=== PATIENT | female | born 1985 | race Caucasian/White ===

== ENCOUNTER 2017-06-14 09:02 | Inpatient (IN) | payer MEDICAID ==
[2017-06-14] MEDS ORDERED: LORazepam INJ* 2 MG/ML 1 ML VIAL IV PUSH ONE (09:36)
[2017-06-14] MEDS ORDERED: NS 0.9% 1000 ML* 1,000 ML IV ONE ×2 (09:36→10:51)
[2017-06-14] MEDS ORDERED: Metoclopramide IV* 5 MG/ML 2 ML VIAL IV SLOW PU ONE (09:36)
[2017-06-14] MEDS ORDERED: Meclizine TAB* 12.5 MG PO ONE (09:37)
[2017-06-14 09:38] LABS: Hematocrit 41 % (35-47); Hemoglobin 13.9 g/dl (12.0-16.0); Mean Corpuscular HGB Conc 34 g/dl (31-36); Mean Corpuscular Hemoglobin 29 pg (27-31); Mean Corpuscular Volume 87 fL (80-97); Mean Platelet Volume 8 um3 (7.4-10.4); Red Blood Count 4.78 10^6/ul (4.0-5.4); Red Cell Distribution Width 12 % (10.5-15); White Blood Count 10.3 10^3/ul (3.5-10.8)
[2017-06-14 09:57] LABS: ALT 10 U/L (7-52); AST 12 U/L (13-39); Albumin 4.1 g/dL (3.2-5.2); Alkaline Phosphatase 37 U/L (34-104); Anion Gap 12 mmol/L (2-11); BUN/Creatinine Ratio 14.3 (8-20); Blood Urea Nitrogen 12 mg/dL (6-24); CO2 Carbon Dioxide 18 mmol/L (22-32); Calcium 9.2 mg/dL (8.6-10.3); Chloride 103 mmol/L (101-111); EGFR African American 99.8 (>60); EGFR Non-African American 77.6 (>60); Globulin 3.1 g/dL (2-4); Glucose 204 mg/dL (70-100); Lipase 10 U/L (11.0-82.0); Potassium 3.8 mmol/L (3.5-5.0); Sodium 133 mmol/L (133-145); Total Protein 7.2 g/dL (6.4-8.9)
[2017-06-14 10:06] LABS: C Reactive Protein < 1.00 mg/L (< 5.00)
[2017-06-14] MEDS ORDERED: Vancomycin(*) 1,500 MG in NS 0.9% 250 ML* 250 ML IVPB ONE (10:46)
[2017-06-14 10:49] LABS: Erythrocyte Sed Rate 11 mm/Hr (0-14)
[2017-06-14] MEDS ORDERED: cefTRIAXone(*) 2 GM ADDV.VIAL IVPB ONE (11:11)
[2017-06-14] MEDS ORDERED: NS 0.9% 250 ML* 250 ML ONE (11:11)
[2017-06-14 11:13] LABS: Venous Bicarbonate HCO3 21.7 mmol/L (24-28)
--- NOTE | 2017-06-14 11:25 | RAD ---
Indication: Severe headache. Photophobia. Comparison: No relevant prior exams available on the [facility] PACS for comparison. Technique: Noncontrast CT vertex of skull through foramen magnum. Report: The sulci, ventricles, and basal cisterns are normal for age. Juarez matter white matter differentiation is preserved without evidence for edema. No intra or extra axial hemorrhage, mass, or fluid collection detected. Unremarkable visualized orbital contents. Unremarkable calvarium and skull base. Unremarkable scalp. The visualized paranasal sinuses and mastoid air spaces are clear. IMPRESSION: Negative unenhanced head CT.
[2017-06-14 11:45] LABS: Urine Bacteria Absent (Absent); Urine Bilirubin Negative (Negative); Urine Glucose 1+(50 mg/dL) (Negative); Urine Nitrite Negative (Negative)
--- NOTE | 2017-06-14 11:53 | RAD ---
HISTORY: Fever COMPARISONS: None VIEWS: 1: frontal portable view of the chest at 11:30 AM FINDINGS: LINES AND TUBES: None. CARDIOMEDIASTINAL SILHOUETTE: The cardiomediastinal silhouette is normal for portable technique. PLEURA: The costophrenic angles are sharp. No pleural abnormalities are noted. LUNG PARENCHYMA: The lungs are clear. ABDOMEN: The upper abdomen is clear. There is no subphrenic gas. BONES AND SOFT TISSUES: No bone or soft tissue abnormalities are noted. IMPRESSION: NO ACTIVE CARDIOPULMONARY DISEASE.
[2017-06-14 12:48] LABS: CSF Glucose 65 mg/dL (40-70)
[2017-06-14 13:14] LABS: Body Fluid Appearance Clear
[2017-06-14 13:15] LABS: WBC counts within 15%? Yes
[2017-06-14 13:19] LABS: BF WBC Count #1 172; BF WBC Count #2 167
[2017-06-14 13:22] LABS: BF RBC Count #1 0; BF RBC Count #2 0; Body Fluid WBC 188 /mcL; RBC counts within 6%? Yes
[2017-06-14 13:25] LABS: Body Fluid Total Cells Counted 100
[2017-06-14] MEDS ORDERED: Metoclopramide IV* 5 MG/ML 2 ML VIAL IV PRN (14:31)
[2017-06-14] MEDS ORDERED: LORazepam INJ* 2 MG/ML 1 ML VIAL IV PUSH PRN (14:31)
[2017-06-14] MEDS: Acetaminophen TAB* 325 MG PO PRN ×2 (15:20→21:15)
[2017-06-14] MEDS: NS 0.9% 1000 ML* 1,000 ML IV SCH ×2 (15:21→23:28)
[2017-06-14] MEDS: Ondansetron INJ* 2 MG/ML VIAL IV PRN (15:23)
[2017-06-14] MEDS: Ibuprofen TAB* 600 MG PO PRN (17:46)
[2017-06-14] MEDS: Meclizine TAB* 12.5 MG PO SCH (21:14)
--- NOTE | 2017-06-15 00:27 | HP ---
AMENDED REPORT NOW INCLUDES COSIGNER DESIGNATION - ESIGNED BEFORE ADJUSTMENT ATTENDING ADDENDUM NOW INCLUDED ON THIS REPORT HISTORY AND PHYSICAL: DATE OF ADMISSION: 06/14/17 PRIMARY CARE PROVIDER: The patient does not have a primary care provider. MY ATTENDING WHILE IN THE HOSPITAL: Dr. Araseli Jain * (DICTATED BY HOLLAND CEE) CHIEF COMPLAINT: Worst headache of her life since Saturday. HISTORY OF PRESENT ILLNESS: Ms. Dunaway is a 32-year-old female with no significant past medical history presents with 2 days of the worst headache of her life accompanied by dizziness, vertigo, poor appetite, nausea, vomiting, and shortness of breath. The patient states that all these symptoms are worse with movement and that she has never had anything like this before. The patient states she has not been able to eat or drink very much in the past couple of days due to vomiting, even vomiting up water. The patient states that she cannot tell if the pain in her neck caused her head to hurt so bad and every time she moves, feels like it pulses in the front of her head. The patient denies throbbing, vision changes, or unilaterality of her headache. The patient states that lights hurt her eyes. The patient denies hallucinations , aphasia, abnormal movements, numbness or tingling in her hands or feet. The patient states she has felt like she has had the fever since Saturday and has had shaking chills to accompany them. The patient states she had a cold last week and has had postnasal drip leading to the cough accompanying it. The patient states she occasionally coughs up clear or green mucus. The patient denies any blood in the mucus. The patient states she commutes from [facility] to [place]. 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 Has significant contact with children and has recently gone swimming with children and felt strange afterwards. That was a couple weeks ago. The patient denies diarrhea or bloody stools. PAST MEDICAL HISTORY: None. MEDICATIONS: None. ALLERGIES: No known drug allergies. FAMILY HISTORY: The patient's father is alive and well and has diabetes. The patient denies a family history of immunocompromised state, cardiovascular disease, cancer, respiratory disease. SOCIAL HISTORY: The patient does not smoke. The patient drinks socially. The patient denies any illicit drugs. The patient is not and does not have any kids. REVIEW OF SYSTEMS: The patient denies chest pain, hemoptysis, dysuria, hematuria, weakness, arthralgias. The patient states she does have myalgias. The patient denies any rash, but says she has not checked. The patient denies any change in personality. The patient's father corroborates this. PHYSICAL EXAMINATION GENERAL: The patient is a 32-year-old female, who appears stated age, lying on the stretcher in the emergency department under copious number of blankets without making eye contact or moving much at all. VITAL SIGNS: Blood pressure 98/56, heart rate 103, temperature 97.1 rectally when she arrived, respiratory rate 22, oxygen saturation 99% on room air. HEENT: Head: Atraumatic. Sclerae anicteric. Pupils equal, round, reactive to light. Pharynx: Nonerythematous. No ulcers. Mucous membranes are pale and dry. No rash noted on the face. NECK: Rigid. There is tender anterior lymphadenopathy present on both sides. RESPIRATORY: Good air exchange bilaterally. No wheezes, rales, or rhonchi. CARDIAC: Pulse rate tachycardic. No murmurs, clicks, gallops, or rubs. Radial , dorsalis pedis, and posterior tibial pulses +2 bilaterally. No edema. ABDOMEN: Bowel sounds present in all 4 quadrants. Abdomen scaphoid, nontender to the light and deep palpation. No hepatosplenomegaly. No abdominal bruits heard. NEURO: Cranial nerves II through XII intact. Alert and oriented x3. Brudzinski's sign positive, Kernig's sign negative. SKIN: No rashes noted. Skin is warm to touch, pink, and intact. DIAGNOSTIC STUDIES/LAB DATA: White blood cell count 10.3, hemoglobin 13.9, hematocrit 41, platelets 379. Venous blood gas pH 7.31, venous blood gas CO2 74 , venous blood gas PO2 30, venous blood gas bicarbonate 21.7, venous blood gas O2 saturation 58, venous blood gas base excess negative 2.8. Sodium 133, potassium 3.8, chloride 103, carbon dioxide 18, anion gap 12, BUN 12, creatinine 0.84, glucose 204, lactic acid 2.1. AST 12, ALT 10, ALP 37. CRP less than 1. Beta hCG 0.6. Urine: Yellow, cloudy, 2+ protein, 2+ ketones, trace leukocyte esterase, 2+ white blood cells, 1+ red blood cells, present epithelial cells, glucose, hyaline casts. Cerebrospinal fluid: Clear, 188 white blood cells, no red blood cells, 2 neutrophils, 90 lymphocytes, 8 monocytes, glucose 65, protein 116. Chest x-ray read as no acute disease. Brain CT read as negative head CT. IMPRESSION AND PLAN: The patient is a 32-year-old female with no significant past medical history but risk factors for viral meningitis, who presents with symptoms consistent with viral meningitis. We will admit to medical floor and treat supportively. 1. Viral meningitis. The patient received empiric treatment for bacterial meningitis and herpes simplex virus in the ED. Will continue Rocephin 2g daily to cover common causes of bacterial meningitis and lyme. Testing for Lyme and HSV 1 ordered. Will institute supportive measures to control of fever and discomfort. We will monitor for worsening condition and we will reconsider restarting additional antibiotics or antivirals if indicated. ID will be consulted. 2. Elevated blood glucose. The patient had a glucose of 200 on routine laboratory testing after not having eaten for a couple days per the patient. We will order a hemoglobin A1c to assess for impaired glucose tolerance and would suggest an investigation in the outpatient setting. 3. Fluids, electrolytes, and nutrition. Fluids running at 125. Normal unrestricted diet. 4. Code status. The patient would like to be a full code. She would like her surrogate decision maker to be her father Sa Dunaway 5. DVT prophylaxis. The patient is a low risk. We will order SCDs, as she will probably not be getting out of bed very much. 6. Disposition. The patient is admitted to the medical floor. TIME SPENT: Approximately 60 minutes was spent on this admission, 30 of which was spent obtaining history and physical from the patient. This plan has been discussed with my attending, Dr. Jain, and she is in agreement. HOLLAND CEE ADDENDUM: DATE OF ADMISSION: 06/14/17 HISTORY OF PRESENT ILLNESS: Mrs. Dunaway is a healthy 32-year-old lady with no significant past medical history that presented to the emergency room with complaints of headache, nausea, vomiting, photophobia, and shaking chills. This case was reviewed and discussed with Madhu Dick, physician diagnostic assistant. Laboratory tests were reviewed and the patient's presentation is compatible with sepsis secondary to viral meningitis. The plan is to admit her for further management and she will be seen in consultation by Infectious Disease provider, Dr. Snyder. Of note is the patient's chemistry showed a random glucose of 204. She has no history of diabetes. We are going to check a hemoglobin A1c to rule out a diagnosis. ARASELI Jain MD [id number]/CPS #: [id number]/CPS #: [id number] MURALI
--- NOTE | 2017-06-15 01:17 | HP ---
HISTORY AND PHYSICAL: ADDENDUM: DATE OF ADMISSION: 06/14/17 HISTORY OF PRESENT ILLNESS: Mrs. Dunaway is a healthy 32-year-old lady with no significant past medical history that presented to the emergency room with complaints of headache, nausea, vomiting, photophobia, and shaking chills. This case was reviewed and discussed with Madhu Dick, physician producer assistant. Laboratory tests were reviewed and the patient's presentation is compatible with sepsis secondary to viral meningitis. The plan is to admit her for further management and she will be seen in consultation by Infectious Disease provider, Dr. Snyder. Of note is the patient's chemistry showed a random glucose of 204. She has no history of diabetes. We are going to check a hemoglobin A1c to rule out a diagnosis. [id number]/[facility] #: [id number] MTDD
[2017-06-15] MEDS: Ibuprofen TAB* 600 MG PO PRN ×3 (03:45→19:47)
[2017-06-15 05:46] LABS: Hematocrit 33 % (35-47); Hemoglobin 11.4 g/dl (12.0-16.0); Mean Corpuscular HGB Conc 34 g/dl (31-36); Mean Corpuscular Hemoglobin 30 pg (27-31); Mean Corpuscular Volume 87 fL (80-97); Mean Platelet Volume 8 um3 (7.4-10.4); Red Blood Count 3.81 10^6/ul (4.0-5.4); Red Cell Distribution Width 12 % (10.5-15); White Blood Count 8.5 10^3/ul (3.5-10.8)
[2017-06-15] MEDS: Acetaminophen TAB* 325 MG PO PRN ×3 (05:52→17:53)
[2017-06-15] MEDS: Meclizine TAB* 12.5 MG PO SCH ×3 (05:52→22:11)
[2017-06-15 06:03] LABS: BUN/Creatinine Ratio 6.8 (8-20); Calcium 7.8 mg/dL (8.6-10.3); EGFR African American 117.4 (>60); EGFR Non-African American 91.3 (>60); Potassium 3.5 mmol/L (3.5-5.0)
[2017-06-15] MEDS: NS 0.9% 1000 ML* 1,000 ML IV SCH ×2 (08:13→17:13)
--- NOTE | 2017-06-15 11:39 | PN ---
Subjective Date of Service: 06/15/17 Interval History: Patient seen and examined at bedside. Pt states that her headache is improved from yesterday morning. She reports an 8-9/10 headache overnight and the headache is now 6/10. Pt is unable to keep eyes open due to the headache and is mostly resting with her eyes closed. She reports that she didn't sleep well overnight due to the headache. Denies fever, chills, shortness of breath, chest discomfort, N/V/D. Family History: Unchanged from Admission Social History: Unchanged from Admission Past Medical History: Findings - Hx: HSV Objective Active Medications: Acetaminophen (Tylenol Tab*) 650 mg PO Q6H PRN Reason: PAIN Sodium Chloride (Ns 0.9% 1000 Ml*) 1,000 mls @ 125 mls/hr IV PER RATE WOLFGANG Ceftriaxone Sodium 2 gm/ (Sodium Chloride) 100 mls @ 200 mls/hr IVPB Q24H WOLFGANG Ibuprofen (Motrin Tab*) 600 mg PO Q8H PRN Reason: PAIN Lorazepam (Ativan Inj*) 0.5 mg IV PUSH Q4H PRN Reason: ANXIETY Meclizine HCl (Antivert Tab*) 12.5 mg PO Q8HR WOLFGANG Metoclopramide HCl (Reglan Iv*) 5 mg IV Q6H PRN Reason: NAUSEA/VOMITING Ondansetron HCl (Zofran Inj*) 4 mg IV Q4H PRN Reason: NAUSEA Vital Signs 06/14/17 06/14/17 06/14/17 14:00 14:22 15:04 Temperature 101.7 F Pulse Rate 99 112 Respiratory 15 19 Rate Blood Pressure 98/56 98/56 102/57 (mmHg) O2 Sat by Pulse 97 Oximetry 06/14/17 06/14/17 06/14/17 16:01 17:02 20:03 Temperature 101.1 F 100.6 F Pulse Rate 118 119 Respiratory 19 18 26 Rate Blood Pressure 101/46 (mmHg) O2 Sat by Pulse 98 100 Oximetry 06/14/17 06/14/17 06/14/17 22:25 22:26 23:44 Temperature 99.5 F Pulse Rate 99 Respiratory 26 18 16 Rate Blood Pressure 95/51 (mmHg) O2 Sat by Pulse 100 Oximetry 06/15/17 06/15/17 06/15/17 03:51 08:00 08:01 Temperature 100.2 F 98.7 F Pulse Rate 101 93 Respiratory 16 16 17 Rate Blood Pressure 105/62 96/48 (mmHg) O2 Sat by Pulse 100 99 Oximetry Oxygen Devices in Use Now: None Appearance: NAD, laying in bed Ears/Nose/Mouth/Throat: Mucous Membranes Moist Neck: - - nuchal rigidity Respiratory: Symmetrical Chest Expansion and Respiratory Effort, Clear to Auscultation Cardiovascular: NL Sounds; No Murmurs; No JVD, RRR Abdominal: NL Sounds; No Tenderness; No Distention Extremities: No Edema Skin: No Rash or Ulcers Neurological: Alert and Oriented x 3, NL Muscle Strength and Tone Lines/Tubes/Other Access: Clean, Dry and Intact Peripheral IV - site benign Nutrition: Taking PO's Result Diagrams: 06/15/17 05:38 06/15/17 05:38 Assess/Plan/Problems-Billing Assessment: Ms. Dunaway is a 32 yo female with no significant PMH who presented to the emergency room with complaints of the worse headache she has ever had and was admitted for viral meningitis. - Patient Problems (1) Viral meningitis Code(s): A87.9 - VIRAL MENINGITIS, UNSPECIFIED SNOMED Code(s): 54752554 Comment: - Continues to have a headache - CSF culture and HSV pending - Continue supportive care measures - Continue ceftriaxone for now to cover for possible lyme (2) Elevated glucose Code(s): R73.09 - OTHER ABNORMAL GLUCOSE SNOMED Code(s): 922635177 Comment: - HgA1C - 5.2 (3) DVT prophylaxis Code(s): BTY7719 - SNOMED Code(s): 585813928 Comment: - SCDs (4) Full code status Code(s): Z78.9 - OTHER SPECIFIED HEALTH STATUS SNOMED Code(s): 365065226 Status and Disposition: Inpatient. Discharge to home when medically stable, possibly in the AM.
[2017-06-15 21:16] LABS: HSV 1 PCR, CSF Negative (Negative); HSV 2 PCR, CSF Negative (Negative)
[2017-06-16 00:02] LABS: CSF West Nile Virus RNA (PCR) Negative (Negative); West Nile Virus Source CSF
[2017-06-16] MEDS: Acetaminophen TAB* 325 MG PO PRN ×3 (00:15→18:10)
[2017-06-16 01:07] LABS: B garinii/B afzelii PCR Negative (Negative); B mayonii PCR Negative (Negative)
[2017-06-16] MEDS: NS 0.9% 1000 ML* 1,000 ML IV SCH ×3 (01:13→18:10)
[2017-06-16] MEDS: Ondansetron INJ* 2 MG/ML VIAL IV PRN (03:23)
[2017-06-16] MEDS: Ibuprofen TAB* 600 MG PO PRN ×3 (03:23→23:05)
[2017-06-16] MEDS: Meclizine TAB* 12.5 MG PO SCH (06:14)
[2017-06-16 06:20] LABS: Hematocrit 34 % (35-47); Hemoglobin 11.4 g/dl (12.0-16.0); Mean Corpuscular HGB Conc 34 g/dl (31-36); Mean Corpuscular Hemoglobin 29 pg (27-31); Mean Corpuscular Volume 87 fL (80-97); Mean Platelet Volume 8 um3 (7.4-10.4); Red Blood Count 3.92 10^6/ul (4.0-5.4); Red Cell Distribution Width 12 % (10.5-15); White Blood Count 6.7 10^3/ul (3.5-10.8)
[2017-06-16 06:32] LABS: BUN/Creatinine Ratio 5.6 (8-20); EGFR African American 121.2 (>60); EGFR Non-African American 94.2 (>60); Potassium 3.4 mmol/L (3.5-5.0)
[2017-06-16] MEDS ORDERED: Potassium Chlor TAB* 20 MEQ TAB.ER PO ONE (07:25)
--- NOTE | 2017-06-16 10:03 | PN ---
Subjective Date of Service: 06/16/17 Interval History: Patient seen and examined at bedside. Pt continues to have a headache, but reports it as closer to a regular headache at this point. Pt reports a fever overnight and continues to have some nausea. Denies chills, shortness of breath , chest pain, V/D. She feels that the antivert may be causing nausea. Family History: Unchanged from Admission Social History: Unchanged from Admission Past Medical History: Findings - Hx: HSV Objective Active Medications: Acetaminophen (Tylenol Tab*) 650 mg PO Q6H PRN Reason: PAIN Sodium Chloride (Ns 0.9% 1000 Ml*) 1,000 mls @ 125 mls/hr IV PER RATE WOLFGANG Ibuprofen (Motrin Tab*) 600 mg PO Q8H PRN Reason: PAIN Lorazepam (Ativan Inj*) 0.5 mg IV PUSH Q4H PRN Reason: ANXIETY Meclizine HCl (Antivert Tab*) 12.5 mg PO Q8HR WOLFGANG Metoclopramide HCl (Reglan Iv*) 5 mg IV Q6H PRN Reason: NAUSEA/VOMITING Ondansetron HCl (Zofran Inj*) 4 mg IV Q4H PRN Reason: NAUSEA Vital Signs 06/15/17 06/15/17 06/15/17 11:19 15:39 17:15 Temperature 98.6 F 98.9 F 101.0 F Pulse Rate 95 85 Respiratory 18 20 18 Rate Blood Pressure 99/59 105/72 (mmHg) O2 Sat by Pulse 100 98 Oximetry 06/15/17 06/15/17 06/15/17 18:26 19:23 20:00 Temperature 100.1 F 102.0 F Pulse Rate 75 Respiratory 16 18 Rate Blood Pressure 120/63 (mmHg) O2 Sat by Pulse 100 Oximetry 06/15/17 06/15/17 06/15/17 20:28 21:42 23:20 Temperature 100.2 F 99.5 F 99.5 F Pulse Rate 88 Respiratory 16 Rate Blood Pressure 104/56 (mmHg) O2 Sat by Pulse 98 Oximetry 06/16/17 06/16/17 03:20 08:00 Temperature 99.6 F Pulse Rate 96 Respiratory 16 18 Rate Blood Pressure 102/62 (mmHg) O2 Sat by Pulse 99 Oximetry Oxygen Devices in Use Now: None Appearance: NAD, laying in bed Ears/Nose/Mouth/Throat: Mucous Membranes Moist Neck: - - nuchal rigidity Respiratory: Symmetrical Chest Expansion and Respiratory Effort, Clear to Auscultation Cardiovascular: NL Sounds; No Murmurs; No JVD, RRR Abdominal: NL Sounds; No Tenderness; No Distention Extremities: No Edema Skin: No Rash or Ulcers Neurological: Alert and Oriented x 3, NL Muscle Strength and Tone Lines/Tubes/Other Access: Clean, Dry and Intact Peripheral IV - site benign Nutrition: Taking PO's Result Diagrams: 06/16/17 05:53 06/16/17 05:53 Assess/Plan/Problems-Billing Assessment: Ms. Dunaway is a 32 yo female with no significant PMH who presented to the emergency room with complaints of the worse headache she has ever had and was admitted for viral meningitis. - Patient Problems (1) Viral meningitis Code(s): A87.9 - VIRAL MENINGITIS, UNSPECIFIED SNOMED Code(s): 27768028 Comment: - Continues to have a headache - Intermittent fever, temp max 102 overnight - CSF culture no growth day 2 and HSV negative - Continue supportive care measures - Discontinued ceftriaxone (2) Elevated glucose Code(s): R73.09 - OTHER ABNORMAL GLUCOSE SNOMED Code(s): 144515863 Comment: - HgA1C - 5.2 (3) DVT prophylaxis Code(s): LRN1496 - SNOMED Code(s): 035457974 Comment: - SCDs (4) Full code status Code(s): Z78.9 - OTHER SPECIFIED HEALTH STATUS SNOMED Code(s): 658884741 Status and Disposition: Inpatient. Discharge to home when medically stable, possibly in the AM.
[2017-06-16] MEDS ORDERED: Meclizine TAB* 12.5 MG PO PRN (10:17)
[2017-06-16 11:11] LABS: Magnesium 1.8 mg/dL (1.9-2.7)
[2017-06-17] MEDS: Acetaminophen TAB* 325 MG PO PRN ×3 (01:08→15:52)
[2017-06-17 06:57] LABS: BUN/Creatinine Ratio 8.3 (8-20); Calcium 8.5 mg/dL (8.6-10.3); EGFR African American 119.2 (>60); EGFR Non-African American 92.7 (>60); Magnesium 1.9 mg/dL (1.9-2.7); Potassium 3.5 mmol/L (3.5-5.0)
[2017-06-17] MEDS: Ondansetron INJ* 2 MG/ML VIAL IV PRN ×2 (08:21→17:48)
[2017-06-17] MEDS: NS 0.9% 1000 ML* 1,000 ML IV SCH (09:49)
[2017-06-17] MEDS: Ibuprofen TAB* 600 MG PO PRN ×2 (09:59→20:53)
--- NOTE | 2017-06-17 11:07 | PN ---
Subjective Date of Service: 06/17/17 Interval History: Patient seen and examined at bedside. Pt states that she is felling better but she didn't sleep well. Denies chills, shortness of breath, chest discomfort, V/ V. Pt states that she intermittently has nausea and a headache. Also reports back discomfort, that feels muscular. She reports that she has been up and ambulating in the halls and to the bathroom. Family History: Unchanged from Admission Social History: Unchanged from Admission Past Medical History: Findings - Hx: HSV Objective Active Medications: Acetaminophen (Tylenol Tab*) 650 mg PO Q6H PRN Reason: PAIN Sodium Chloride (Ns 0.9% 1000 Ml*) 1,000 mls @ 125 mls/hr IV PER RATE WOLFGANG Ibuprofen (Motrin Tab*) 600 mg PO Q8H PRN Reason: PAIN Lorazepam (Ativan Inj*) 0.5 mg IV PUSH Q4H PRN Reason: ANXIETY Meclizine HCl (Antivert Tab*) 12.5 mg PO Q8HR PRN Reason: DIZZINESS Metoclopramide HCl (Reglan Iv*) 5 mg IV Q6H PRN Reason: NAUSEA/VOMITING Ondansetron HCl (Zofran Inj*) 4 mg IV Q4H PRN Reason: NAUSEA Vital Signs 06/16/17 06/16/17 06/16/17 11:38 15:59 23:20 Temperature 98.6 F 98.7 F 100.1 F Pulse Rate 85 72 57 Respiratory 14 16 16 Rate Blood Pressure 98/62 102/58 115/63 (mmHg) O2 Sat by Pulse 100 99 99 Oximetry 06/17/17 06/17/17 06/17/17 00:00 01:13 01:39 Temperature 101.3 F Pulse Rate Respiratory 18 16 Rate Blood Pressure (mmHg) O2 Sat by Pulse Oximetry 06/17/17 06/17/17 06/17/17 02:31 04:49 04:51 Temperature 98.6 F 98.2 F Pulse Rate 64 71 Respiratory 16 Rate Blood Pressure 85/41 98/52 (mmHg) O2 Sat by Pulse 100 99 Oximetry 06/17/17 06/17/17 07:30 08:00 Temperature 98.8 F Pulse Rate 70 Respiratory 16 16 Rate Blood Pressure 92/67 (mmHg) O2 Sat by Pulse 100 Oximetry Oxygen Devices in Use Now: None Appearance: NAD, laying in bed Ears/Nose/Mouth/Throat: Mucous Membranes Moist Respiratory: Symmetrical Chest Expansion and Respiratory Effort, Clear to Auscultation Cardiovascular: NL Sounds; No Murmurs; No JVD, RRR Abdominal: NL Sounds; No Tenderness; No Distention Extremities: No Edema Skin: No Rash or Ulcers, - - Lumbar puncture site benign Neurological: Alert and Oriented x 3, NL Muscle Strength and Tone, - - Back non tender to palpation Lines/Tubes/Other Access: Clean, Dry and Intact Peripheral IV - site benign Nutrition: Taking PO's Result Diagrams: 06/16/17 05:53 06/17/17 06:20 Assess/Plan/Problems-Billing Assessment: Ms. Dunaway is a 32 yo female with no significant PMH who presented to the emergency room with complaints of the worse headache she has ever had and was admitted for viral meningitis. - Patient Problems (1) Viral meningitis Code(s): A87.9 - VIRAL MENINGITIS, UNSPECIFIED SNOMED Code(s): 92751113 Comment: - Continues to have a headaches - Intermittent fever, temp max 101.3 overnight - CSF culture no growth day 3 and HSV negative - Blood culutures no growth day 3 - Will get HIV testing - Continue supportive care measures (2) Electrolyte abnormality Code(s): E87.8 - OTH DISORDERS OF ELECTROLYTE AND FLUID BALANCE, NEC SNOMED Code(s): 154725420 Comment: - Hypokalemia - Received replacement and resolved - Hypomagnesemia - Received replacement and resolved (3) Elevated glucose Code(s): R73.09 - OTHER ABNORMAL GLUCOSE SNOMED Code(s): 484457380 Comment: - HgA1C - 5.2 (4) DVT prophylaxis Code(s): HMM9512 - SNOMED Code(s): 432072740 Comment: - SCDs (5) Full code status Code(s): Z78.9 - OTHER SPECIFIED HEALTH STATUS SNOMED Code(s): 311470384 Status and Disposition: Inpatient. Discharge to home when medically stable.
[2017-06-17] MEDS: Ondansetron ODT TAB* 4 MG SL PRN (19:33)
[2017-06-18] MEDS: Acetaminophen TAB* 325 MG PO PRN ×2 (04:08→12:44)
[2017-06-18] MEDS: Ibuprofen TAB* 600 MG PO PRN ×2 (08:15→18:19)
[2017-06-18] MEDS: Ondansetron ODT TAB* 4 MG SL PRN ×2 (08:16→18:18)
[2017-06-18 16:24] LABS: Influenza Virus Type A IgM Ab <1:10 (<1:10); Influenza Virus Type B IgM Ab <1:10 (<1:10)
[2017-06-18 16:29] VITALS: BP 101/66
--- NOTE | 2017-06-19 00:08 | CONS ---
CONSULTATION REPORT: DATE OF CONSULTATION: 06/18/17 REQUESTING PHYSICIAN: Dr. Baker. CONSULTING SERVICE: Infectious Disease. REASON FOR CONSULTATION: Aseptic meningitis. IMPRESSION: 1. Fever, headache, myalgia, and fluid CSF profile of 198 white cells, 98% lymphocytes, protein 116, glucose 65, herpes 1 and 2 PCR and West Nile PCR from the spinal fluid negative. A Lyme serology is pending. She has aseptic meningitis, the differential diagnoses include enterovirus as is common this time of year as well as Lyme. She had a negative Lyme spinal fluid PCR, but that is not sensitive for Lyme meningitis. Other viral considerations, she did have an HIV test, which is pending. 2. Headache, slowly improving as is her occasional dizziness and nausea. Her HCG was negative. Brain CT unremarkable. RECOMMENDATIONS: Given that she has had steady improvement over the last few days and has now been afebrile 24 hours, I think it is reasonable for her to go home. We discussed the need to return if severe headache that would not resolve with Tylenol or ibuprofen or if she could not keep down fluids. But, in general , she may expect gradual improvement, which does include sometimes getting little bit worse before getting better. She have a doxycycline prescription 100 mg twice daily for a month to start taking until the Lyme serology has returned. My office will contact her for a followup appointment. HISTORY OF PRESENT ILLNESS: This is a 32-year-old woman, who is otherwise healthy, admitted with headache, fever, malaise that developed the middle of last week. The headache became severe as she developed dizziness, so she came to the hospital on 06/14/17. She had a white count of 10,000, lactate of 2, creatinine of 0.8, ALT of 10. She was febrile to 38.7 degrees. She was started on ceftriaxone. She had a lumbar puncture that showed 188 white cells, 98% lymphocytes, protein 116, glucose 65. Other results negative as noted above. Her blood cultures are negative. Urine culture negative. Spinal fluid culture negative. She is on ceftriaxone a couple of days that was stopped. She has been afebrile for 24 hours. She is not back to her usual self yet, but feels much better compared to a week ago when this started. She has had occasional headache, which is now down to a 2/10. She is using Tylenol, ibuprofen which help. She is dizzy from time to time. She is nauseous occasionally, she is eating, keeping down fluids. Overall feels much better when she got here. Her HCG was negative. She has not had an infection like this in the past. PAST MEDICAL HISTORY: None. ALLERGIES: None. MEDICATIONS: 1. Tylenol. 2. Ibuprofen. 3. Meclizine. 4. Zofran. SOCIAL HISTORY: She lives in [place] for the summer. 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 She had traveled to [place] in the spring. She had been in [facility] a couple of weeks ago, around a couple of little kids. There is a pet cat at home where she is staying with her parents this summer, she has spent some time outdoors here. She had a new partner a day or two before she got sick. She has had no oral or genital ulcers. FAMILY HISTORY: Father alive with diabetes. REVIEW OF SYSTEMS: All negative to a full review of systems except as noted above. PHYSICAL EXAM: Vital Signs: Temperature 36.7, heart rate 90, respiratory rate 20, blood pressure 101/60, O2 sat 100% on room air. In general, she is awake and not in distress. Neurologic: She is oriented x3, follows all commands, moves all extremities. Cranial nerves II through XII are intact. HEENT: There is no conjunctival hemorrhage. Oropharynx without lesions. Neck is supple without nuchal rigidity. Lymph Nodes: There is no inguinal, axillary, or epitrochlear lymphadenopathy. Heart is regular and tachycardic without murmurs. Lungs: Clear to auscultation bilaterally. Abdomen: Soft, nontender , nondistended. Bowel sounds are present. Skin: There is no rash or splinter hemorrhages. Musculoskeletal: There is no spine tenderness to palpation or joint synovitis. LABORATORY DATA: Creatinine 0.7, white blood cell count 6, hemoglobin 11.4, MCV 87, platelets 289. Please see impressions and recommendations outlined above. Thanks for asking me to see Ms. Dunaway in consultation. [id number]/[facility] #: [id number] [facility]ITALRebekah
--- NOTE | 2017-06-19 05:33 | DS ---
DISCHARGE SUMMARY: DATE OF ADMISSION: 06/14/17. DATE OF DISCHARGE: 06/18/17 ADMITTING PROVIDER: HOLLAND Asif. ATTENDING PHYSICIAN: Moises Baker MD. PRIMARY CARE PROVIDER: None. PRIMARY DIAGNOSIS: Viral meningitis. HISTORY OF PRESENT ILLNESS AND HOSPITAL COURSE: Ms. Dunaway is a 32-year-old female with no significant past medical history presenting with 2-days' of the worst headache of her life accompanied by dizziness, vertigo, poor appetite, nausea, vomiting, shortness of breath. Please see H and P of June 14 for more details. She was unable to eat or drink very much, vomiting pretty much anything she ingested. She attested to pain in her neck exacerbated by movement which then pulses into the front of her head. She attested photophobia and feelings of fever, shaking chills. The week prior, she has had a cold with postnasal drip. She attested exposure to children with a recent swimming expedition. 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 She had removal of her IUD the day prior to symptoms and had a new sexual partner the night prior who denies any symptoms. Of note, she had IUD for 8 hours and a long-term partner and they did not use barrier protection during that time. Last sexually transmitted disease check was approximately December 2015. She did have gonorrhea, syphilis testing done at [facility] when her IUD was taken out. She does attest to some chaffing and itchiness in her vagina on occasions, but no discharge or painful ulcers noted. Patient was initially febrile to 101.1, blood pressures during hospitalization were in the high 90s to low 100s. Patient had a lumbar puncture which demonstrated elevated white count to 188 with lymphocyte predominance of 90%, with 2% neutrophils, 8% monocytes. No RBCs, elevated total protein of 116, normal glucose 65. HSV 1 and 2 PCRs were negative. West Nile RNA was negative. Lyme disease PCR was negative. Patient was admitted with presumptive viral meningitis. She had intermittent headaches, nausea without vomiting (Zofran-controlled), and slowly defervesced. She began to feel better day by day although has still not returned completely to her baseline. Infectious disease consultation was obtained and recommendations for discharge on hospital day #5 with 28 days' of doxycycline 100 mg p.o. b.i.d. to empirically cover for potential Lyme, which of note is not completely sensitive via CSF PCR, although of note, Infectious Disease felt enterovirus was a more likely diagnosis. Patient will be discharged home and should establish care with a primary care physician. Dr. Snyder will follow up, calling to set up an appointment and tracking the CSF culture. MEDICATIONS UPON DISCHARGE: Include: 1. Doxycycline 100 mg p.o. b.i.d. for 28 days. 2. Ibuprofen 600 mg q. 8 hours p.r.n. 3. Tylenol 650 mg p.o. q. 6 p.r.n. 4. Zofran 4 mg q. 6 hours p.r.n. DISPOSITION: Home. DIET: Unchanged. [id number]/[facility] #: [id number] MTDD
== END 2017-06-18 18:00 | disposition home or self-care (01) | DRG 76 ==
LOC: ED 09:02 → MED 13:36
PROVIDERS: ADMIT Internal Medicine; ATTEND Internal Medicine
DX: A87.9 Viral meningitis, unspecified (principal); E87.8 Other disorders of electrolyte and fluid balance, not elsewhere classified; R73.09 Other abnormal glucose; Z83.3 Family history of diabetes mellitus
CPT/HCPCS: 36415; 70450; 71010; 80048; 80053; 81003; 81015; 82803; 82945; 83036; 83605; 83690; 83735; 84157; 84702; 85025; 85652; 86140; 86703; 86710; 87040; 87070; 87086; 87205; 87476; 87529; 87798; 89051; A9270-GY; J0133; J0696; J2060; J2405; J2765; J3370

== ENCOUNTER 2017-06-20 21:10 | Emergency (ER) | payer SELFPAY ==
[2017-06-20] MEDS ORDERED: NS 0.9% 1000 ML* 2,000 ML IV ONE (23:21)
[2017-06-20] MEDS ORDERED: diPHENhydraMINE IV* 50 MG/ML 1 ml VIAL (BENADRYL) IV ONE (23:21)
[2017-06-20] MEDS ORDERED: Ketorolac INJ* 30 MG/ML 1 ML VIAL IV ONE (23:21)
[2017-06-20] MEDS ORDERED: Metoclopramide IV* 5 MG/ML 2 ML VIAL IV ONE (23:21)
[2017-06-20 23:46] LABS: Hematocrit 40 % (35-47); Hemoglobin 13.6 g/dl (12.0-16.0); Mean Corpuscular HGB Conc 34 g/dl (31-36); Mean Corpuscular Hemoglobin 29 pg (27-31); Mean Corpuscular Volume 87 fL (80-97); Mean Platelet Volume 7 um3 (7.4-10.4); Red Blood Count 4.65 10^6/ul (4.0-5.4); Red Cell Distribution Width 13 % (10.5-15); White Blood Count 7.3 10^3/ul (3.5-10.8)
[2017-06-20 23:48] LABS: Urine Bilirubin Negative (Negative); Urine Glucose Negative (Negative); Urine Nitrite Negative (Negative)
[2017-06-21] LABS: BUN/Creatinine Ratio 9.9 (8-20); Calcium 9.3 mg/dL (8.6-10.3); EGFR African American 104.1 (>60); EGFR Non-African American 80.9 (>60); Globulin 2.7 g/dL (2-4); Potassium 3.7 mmol/L (3.5-5.0); Total Bilirubin 0.7 mg/dL (0.2-1.0); Total Protein 6.7 g/dL (6.4-8.9)
[2017-06-21 00:56] LABS: Erythrocyte Sed Rate 12 mm/Hr (0-14)
[2017-06-21] MEDS ORDERED: Metoclopramide TAB* 10 MG PO ONE (01:26)
[2017-06-21 02:07] VITALS: BP 92/55
--- NOTE | 2017-06-21 06:44 | ED ---
Armen Lancaster Rebecca, scribed for Mitesh Pastor MD on 06/20/17 at 2324 . Complex/Multi-Sys Presentation - HPI Summary HPI Summary: Pt is a 32 y/o F with recent Dx of viral meningitis who presents to ED c/o QURESHI with N/V. Reports waking up yesterday morning with N/V, being unable to tolerate any PO intake. This morning, she woke up with similar sx, unable to tolerate food or water though she state she can now tolerate water. On triage, QURESHI was noted to be severe, ranked 9/10. Has been treating QURESHI with Tylenol and Motrin which she was unable to keep down today. Sx aggravated by standing up, alleviated by nothing. Additionally c/o slight chills, constipation (2 days) and mild neck pain secondary to laying down. Denies calf tenderness, fever and abdominal pain. Pt was [place] [facility] [place] ago and was admitted to hospitalist services with Dx of viral meningitis. She was D/C to home 2 days ago with an improved QURESHI and Rx for Doxycycline for possible Lyme Tx. NKDA. - History Of Current Complaint Chief Complaint: EDNauseaVomitDiarrh Time Seen by Provider: 06/20/17 23:11 Hx Obtained From: Patient Onset/Duration: Lasting Days - 2 days, Still Present Severity Currently: Severe - 9/10 on triage Location: Pain At: - QURESHI Aggravating Factor(s): Standing up Alleviating Factor(s): Nothing Associated Signs And Symptoms: Positive: Nausea, Vomiting. Negative: Fever Related History: Recent Illness - Viral meningitis - Allergies/Home Medications Allergies/Adverse Reactions: Allergies Allergy/AdvReac Type Severity Reaction Status Date / Time No Known Allergies Allergy Verified 06/14/17 09:29 PMH/Surg Hx/FS Hx/Imm Hx Sensory History: Reports: Hx Contacts or Glasses Denies: Hx Hearing Aid Opthamlomology History: Reports: Hx Contacts or Glasses Neurological History: Reports: Other Neuro Impairments/Disorders - Hx viral meningitis Infectious Disease History: No Infectious Disease History: Denies: Traveled Outside the [place] in Last 30 Days - Family History Known Family History: Positive: Diabetes Negative: Cardiac Disease - Social History Alcohol Use: Occasionally Alcohol Amount: 1-4 beers daily Substance Use Type: Reports: None Smoking Status (MU): Never Smoked Tobacco Review of Systems Positive: Chills. Negative: Fever Positive: Vomiting, Nausea, Other - Constipation. Negative: Abdominal Pain Positive: Other - Mild neck pain; NEGATIVE: calf tenderness Neurological: Negative All Other Systems Reviewed And Are Negative: Yes Physical Exam - Summary Physical Exam Summary: The patient is well-nourished in mid distress. The skin is warm and dry and skin color reflects adequate perfusion. HEENT: The head is normocephalic and atraumatic. The pupils are equal and reactive and slightly photophobic. The conjunctivae are clear and without drainage. Nares are patent and without drainage. Mouth reveals dry mucous membranes and the throat is without erythema and exudate. The external ears are intact. The ear canals are patent and without drainage. The tympanic membranes are intact. Neck is supple with full range of motion and non-tender. Respiratory: Chest is non-tender. Lungs are clear to auscultation and breath sounds are symmetrical and equal. Cardiovascular: Hear is regular rate and rhythm. There is no murmur or rub auscultated. There is no peripheral edema and pulses are symmetrical and equal. Abdomen: The abdomen is soft and non-tender. There are normal bowel sounds heard in all four quadrants and there is no organomegaly palpated. Musculoskeletal: There is no back pain noted. Extremities are non-tender with full range of motion. There is good capillary refill of 2 seconds. Neurological: Patient is alert and oriented to person, place and time and pleasant. The patient has symmetrical motor strength in all four extremities. No focal neurological deficits appreciated. Psychiatric: The patient has an appropriate affect and does not exhibit any anxiety or depression. Triage Information Reviewed: Yes Vital Signs On Initial Exam: Initial Vitals Temp Pulse Resp BP Pulse Ox 98 F 114 17 92/67 100 06/20/17 21:14 06/20/17 21:14 06/20/17 21:14 06/20/17 21:14 06/20/17 21:14 Vital Signs Reviewed: Yes - [place] Coma Scale Coma Scale Total: 15 Diagnostics - Vital Signs Vital Signs Temp Pulse Resp BP Pulse Ox 06/20/17 21:14 98 F 114 17 92/67 100 - Laboratory Lab Results: Lab Results 06/20/17 06/20/17 06/20/17 Range/Units 23:35 23:35 23:35 WBC 7.3 (3.5-10.8) 10^3/ul RBC 4.65 (4.0-5.4) 10^6/ul Hgb 13.6 (12.0-16.0) g/dl Hct 40 (35-47) % MCV 87 (80-97) fL MCH 29 (27-31) pg MCHC 34 (31-36) g/dl RDW 13 (10.5-15) % Plt Count 413 (150-450) 10^3/ul MPV 7 L (7.4-10.4) um3 Neut % (Auto) 71.1 (38-83) % Lymph % (Auto) 19.0 L (25-47) % [place] % (Auto) 8.1 (1-9) % Eos % (Auto) 1.2 (0-6) % Baso % (Auto) 0.6 (0-2) % Absolute Neuts (auto) 5.2 (1.5-7.7) 10^3/ul Absolute Lymphs (auto) 1.4 (1.0-4.8) 10^3/ul Absolute Monos (auto) 0.6 (0-0.8) 10^3/ul Absolute Eos (auto) 0.1 (0-0.6) 10^3/ul Absolute Basos (auto) 0 (0-0.2) 10^3/ul Absolute Nucleated RBC 0 10^3/ul Nucleated RBC % 0 ESR 12 (0-14) mm/Hr Sodium 134 (133-145) mmol/L Potassium 3.7 (3.5-5.0) mmol/L Chloride 100 L (101-111) mmol/L Carbon Dioxide 27 (22-32) mmol/L Anion Gap 7 (2-11) mmol/L BUN 8 (6-24) mg/dL Creatinine 0.81 (0.51-0.95) mg/dL Est GFR ( Amer) 104.1 (>60) Est GFR (Non-Af Amer) 80.9 (>60) BUN/Creatinine Ratio 9.9 (8-20) Glucose 104 H (70-100) mg/dL Lactic Acid 0.7 (0.5-2.0) mmol/L Calcium 9.3 (8.6-10.3) mg/dL Total Bilirubin 0.70 (0.2-1.0) mg/dL AST 9 L (13-39) U/L ALT 11 (7-52) U/L Alkaline Phosphatase 30 L (34-104) U/L Total Protein 6.7 (6.4-8.9) g/dL Albumin 4.0 (3.2-5.2) g/dL Globulin 2.7 (2-4) g/dL Albumin/Globulin Ratio 1.5 (1-3) Urine Color Urine Appearance Urine pH (5-9) Ur Specific [place] (1.010-1.030) Urine Protein (Negative) Urine Ketones (Negative) Urine Blood (Negative) Urine Nitrate (Negative) Urine Bilirubin (Negative) Urine Urobilinogen (Negative) Ur Leukocyte Esterase (Negative) Urine Glucose (Negative) 06/20/17 Range/Units 23:35 WBC (3.5-10.8) 10^3/ul RBC (4.0-5.4) 10^6/ul Hgb (12.0-16.0) g/dl Hct (35-47) % MCV (80-97) fL MCH (27-31) pg MCHC (31-36) g/dl RDW (10.5-15) % Plt Count (150-450) 10^3/ul MPV (7.4-10.4) um3 Neut % (Auto) (38-83) % Lymph % (Auto) (25-47) % [place] % (Auto) (1-9) % Eos % (Auto) (0-6) % Baso % (Auto) (0-2) % Absolute Neuts (auto) (1.5-7.7) 10^3/ul Absolute Lymphs (auto) (1.0-4.8) 10^3/ul Absolute Monos (auto) (0-0.8) 10^3/ul Absolute Eos (auto) (0-0.6) 10^3/ul Absolute Basos (auto) (0-0.2) 10^3/ul Absolute Nucleated RBC 10^3/ul Nucleated RBC % ESR (0-14) mm/Hr Sodium (133-145) mmol/L Potassium (3.5-5.0) mmol/L Chloride (101-111) mmol/L Carbon Dioxide (22-32) mmol/L Anion Gap (2-11) mmol/L BUN (6-24) mg/dL Creatinine (0.51-0.95) mg/dL Est GFR ( Amer) (>60) Est GFR (Non-Af Amer) (>60) BUN/Creatinine Ratio (8-20) Glucose (70-100) mg/dL Lactic Acid (0.5-2.0) mmol/L Calcium (8.6-10.3) mg/dL Total Bilirubin (0.2-1.0) mg/dL AST (13-39) U/L ALT (7-52) U/L Alkaline Phosphatase (34-104) U/L Total Protein (6.4-8.9) g/dL Albumin (3.2-5.2) g/dL Globulin (2-4) g/dL Albumin/Globulin Ratio (1-3) Urine Color Straw Urine Appearance Clear Urine pH 7.0 (5-9) Ur Specific [place] 1.005 L (1.010-1.030) Urine Protein Negative (Negative) Urine Ketones Trace H (Negative) Urine Blood Negative (Negative) Urine Nitrate Negative (Negative) Urine Bilirubin Negative (Negative) Urine Urobilinogen Negative (Negative) Ur Leukocyte Esterase Negative (Negative) Urine Glucose Negative (Negative) Result Diagrams: 06/20/17 23:35 06/20/17 23:35 Lab Statement: Any lab studies that have been ordered have been reviewed, and results considered in the medical decision making process. Re-Evaluation - Re-Evaluation First Eval Re-Evaluation Time: 01:23 Change: Improved Comment: Pt is feeling much better now. Complex Multi-Symp Course/Dx Assessment/Plan: Pt is a 32 y/o F with recent Dx of viral meningitis who presents to ED c/o QURESHI with N/V. Reports waking up yesterday morning with N/V, being unable to tolerate any PO intake. This morning, she woke up with similar sx, unable to tolerate food or water though she state she can now tolerate water. On triage, QURESHI was noted to be severe, ranked 9/10. Has been treating QURESHI with Tylenol and Motrin which she was unable to keep down today. Sx aggravated by standing up, alleviated by nothing. Additionally c/o slight chills, constipation (2 days) and mild neck pain secondary to laying down. Denies calf tenderness, fever and abdominal pain. Pt was [place] [facility] [place] ago and was admitted to hospitalist services with Dx of viral meningitis. She was D/C to home 2 days ago with an improved QURESHI and Rx for Doxycycline for possible Lyme Tx. NKDA. In the ED course, pt was given [place], Reglan, Benadryl and fluids which improved sx. Pt will be D/C to home with Dx of dehydration, Rx for Reglan and a follow up with her PCP. She understands and agrees. - Diagnoses Provider Diagnoses: Dehydration, Nausea, Headache Discharge - Discharge Plan Condition: Stable Disposition: HOME Prescriptions: Metoclopramide TAB* [Reglan TAB*] 10 mg PO Q6H PRN #[id number] tab PRN Reason: Nausea Patient Education Materials: Acute Nausea and Vomiting (ED), Dehydration (ED) Referrals: Alex Haywood MD [Medical Doctor] - Lei Snyder MD [Medical Doctor] - The documentation as recorded by the Armen vasquez Rebecca accurately reflects the service I personally performed and the decisions made by , Mitesh Pastor MD.
== END 2017-06-21 02:05 | disposition home or self-care (01) ==
LOC: ED 21:10
DX: R11.2 Nausea with vomiting, unspecified (principal); E86.0 Dehydration; R51 Headache
CPT/HCPCS: 36415; 80053; 81003; 83605; 85025; 85652; 96374; 96375; 99283; A9270-GY; J1200; J1885; J2765